=== PATIENT | female | born 1945 | race Caucasian/White ===

== ENCOUNTER 2017-07-12 11:53 | Emergency (ER) | payer MEDICARE, MEDICAID ==
[~2017-07-12] VITALS: Ht 167.6 cm; Wt 62.0 kg
[~2017-07-12 11:53] MED LIST: ALPR.25 PO; AMIT50TA13 PO; AMLO5TAB96 PO; ATEN1TAB73 PO; BACL20TA PO; BUME0.5T PO; BUSP10TA8 PO; ESTR2TAB PO; LEVO100T4 PO; LORT5TAB PO; PRED1 PO
[2017-07-12 11:55] VITALS: BP 169/73; PULSE 74; RESP 16; TEMP 98.9; O2SAT 95
[2017-07-12] MEDS ORDERED: WELLTAB39 PO (12:31)
[2017-07-12] MEDS ORDERED: LEVO100T5 PO (12:31)
[2017-07-12] MEDS ORDERED: MIRA50TA PO (12:31)
[2017-07-12] MEDS ORDERED: OMEP20TA93 PO (12:31)
[2017-07-12] MEDS ORDERED: VITA10002 PO (12:31)
[2017-07-12] MEDS ORDERED: BACL20TA PO (12:31)
[2017-07-12] MEDS ORDERED: CYCL10TA PO (12:31)
[2017-07-12] MEDS ORDERED: CLON0.5T PO (12:31)
[2017-07-12] MEDS ORDERED: ESTR0.5T PO (12:31)
[2017-07-12] MEDS ORDERED: METO50TA PO (12:31)
[2017-07-12] MEDS ORDERED: AMLO2.5T PO (12:31)
[2017-07-12] MEDS ORDERED: MIRT45TA PO (12:31)
[2017-07-12] MEDS ORDERED: BUME0.5T PO (12:31)
[2017-07-12] MEDS ORDERED: LOSA100T PO (12:31)
--- NOTE | 2017-07-12 13:04 | PD ---
HPI Chief Complaint: Laceration/Skin Injury Time Seen by Provider: 12:38 Travel History International Travel<30 days: No Contact w/Intl Traveler<30days: No Traveled to known affect area: No History of Present Illness HPI 72-year-old female here for evaluation of head injury and left lower extremity injury. She reports she attempted to sit on the edge of the bed falling to the left side injuring her head and left leg on a nearby piece of furniture. There was no loss of consciousness. She is not anticoagulated. She has a left-sided generalized headache. No visual changes. No neck pain. No chest pain or shortness of breath. No abdominal pain. No altered sensation or weakness of the lower extremity. She constant aching pain at the site of a laceration to the left lower extremity. Tetanus immunization is up-to-date. PFSH Past Medical History Hx Anticoagulant Therapy: No Autoimmune Disease: Yes (MULTIPLE SCLEROSIS) Anxiety: Yes Depression: Yes Cardiovascular Problems: Yes (HTN, CHOL) High Cholesterol: Yes Congestive Heart Failure: Yes ( PT STATES CHF RESOLVED ) Diabetes: No Diminished Hearing: No Endocrine: Yes (PARATHYROID) GERD: Yes Hypertension: Yes Immunizations Current: Yes Thyroid Disease: Yes (PARATHYROID) Tetanus Vaccination: < 5 Years Influenza Vaccination: Yes ?: Not Ovarian Cysts: Yes Past Surgical History Appendectomy: Yes Section: Yes (X2) Cholecystectomy: Yes Endocrine Surgery: Yes (PARATHYROID-THYROIDECTOMY) Eye Surgery: Yes (CATARACTS) Genitourinary Surgery: Yes (RT NEPHRECTOMY) Hysterectomy: Yes Mastectomy: Yes (BILATERAL - CYSTS) Thoracic Surgery: Yes (R LUNG TUMOR REMOVED) Other Surgery: Yes (BILATERAL MASTECTOMY) Social History Alcohol Use: Yes (RARE) Tobacco Use: No Substance Use: No Allergies-Medications (Allergen,Severity, Reaction): Coded Allergies: ciprofloxacin (Unverified Allergy, Severe, 07/12/17) venlafaxine (Unverified Adverse Reaction, Intermediate, VERY HYPER, 07/12/17 ) Reported Meds & Prescriptions Reported Meds & Active Scripts Active Reported Mirtazapine 45 Mg Tab 45 Mg PO HS Myrbetriq (Mirabegron) 50 Mg Tab 50 Mg PO DAILY Estradiol 0.5 Mg Tab 0.5 Mg PO DAILY Vitamin B-12 (Cyanocobalamin) 1,000 Mcg Tab 1,000 Mcg PO DAILY Omeprazole 20 Mg Tab 20 Mg PO DAILY Flexeril (Cyclobenzaprine HCl) 10 Mg Tab 10 Mg PO TID Wellbutrin Xl 24 HR (Bupropion HCl) 300 Mg Tab 300 Mg PO DAILY Clonazepam 0.5 Mg Tab 0.5 Mg PO TID Baclofen 20 Mg Tab 20 Mg PO TID Losartan (Losartan Potassium) 100 Mg Tab 100 Mg PO DAILY Bumetanide 0.5 Mg Tab 0.5 Mg PO DAILY Metoprolol Tartrate 50 Mg Tab 50 Mg PO DAILY Amlodipine (Amlodipine Besylate) 2.5 Mg Tab 2.5 Mg PO DAILY Levothyroxine (Levothyroxine Sodium) 100 Mcg Tab 100 Mcg PO DAILY Review of Systems Except as stated in HPI: all other systems reviewed are Neg General / Constitutional: No: Fever Eyes: No: Visual changes HENT: No: Headaches Cardiovascular: No: Chest Pain or Discomfort Respiratory: No: Shortness of Breath Gastrointestinal: No: Abdominal Pain Genitourinary: No: Dysuria Physical Exam Narrative GENERAL: Alert and well-appearing 72-year-old female SKIN: Laceration to the left lower extremity HEAD: Normocephalic. Small hematoma to the left forehead with 0.5 cm avulsion skin injury to the left eyebrow. EYES: Pupils equal, round, reactive to light. EOMs intact.. No injection or drainage. NECK: Supple, trachea midline. No cervical midline tenderness. Can freely move the neck. CARDIOVASCULAR: Regular rate and rhythm without murmurs, gallops, or rubs. No chest wall tenderness. RESPIRATORY: Breath sounds equal bilaterally. No accessory muscle use. GASTROINTESTINAL: Abdomen soft, non-tender, nondistended. MUSCULOSKELETAL: No cyanosis, or edema. LLE: 9CM flap laceration/skin tear to the lateral lower extremity. Vascular tendon injury. Full range of motion of the ankle and all toes. Normal sensation. Palpable DP pulse. Brisk cap refill. BACK: Nontender without obvious deformity. No CVA tenderness. Data Data Last Documented VS Vital Signs Date Time Temp Pulse Resp B/P (MAP) Pulse Ox O2 Delivery O2 Flow Rate FiO2 07/12/17 11:55 98.9 74 16 169/73 (105) [address] Brain W/O Iv Contrast(Rout) (07/12/17 ) Acetaminophen (Tylenol) (07/12/17 13:45) MDM Medical Decision Making Medical Screen Exam Complete: Yes Emergency Medical Condition: Yes Differential Diagnosis Left lower extremity laceration, tendon injury, facial laceration, ICH, scalp contusion Narrative Course 72-year-old female with facial contusion and laceration to the left lower extremity. She has a normal neurologic exam. The left lower extremity is neurovascularly intact. Laceration repair performed. CT the brain is negative for hemorrhage. She is stable and ready for discharge Procedures Procedure Narrative LACERATION LOCATION: Left lower extremity LENGTH: 9 cm NUMBER OF STITCHES/PAULETTE: 15 REPAIR: The area of the laceration was prepped with Betadine and sterilely draped. The laceration was infiltrated with 1% lidocaine. The wound was copiously irrigated and explored without evidence of foreign body, tendon injury or neurovascular injury. The wound was closed using 3-0 Ethilon. This was a single layer repair. A sterile dressing was applied. The patient was advised to keep the dressing clean and dry. Patient tolerated the procedure well. Diagnosis Primary Impression: Laceration of lower extremity Qualified Codes: S81.812A - Laceration without foreign body, left lower leg, initial encounter Additional Impression: Head injury Qualified Codes: S09.90XA - Unspecified injury of head, initial encounter Referrals: Primary Care Physician Additional Instructions: Sutures need to be removed in 10 days. Do not submerge the wound in water. Follow-up with your primary doctor for recheck. Return to the ER if he develop new or worsening symptoms as discussed Disposition: 01 DISCHARGE HOME Condition: Stable Codi Chirinos Jul 12, 2017 13:04
[2017-07-12] MEDS ORDERED: ACETAMINOPHEN 500 MG CPLT PO ONE (13:45)
--- NOTE | 2017-07-12 14:03 | RADRPT ---
EXAM DATE: 07/12/2017 1:54 PM EDT AGE/SEX: 72 years / Female INDICATIONS: Fell and hit left side of head. CLINICAL DATA: This is the patient's initial encounter. Patient reports that signs and symptoms have been present for 1 day and indicates a pain score of 4/10. MEDICAL/SURGICAL HISTORY: Hypertension. Hypercholesterolemia. Nephrectomy, right. Thyroidectomy. RADIATION DOSE: 50.78 CTDI (mGy) COMPARISON: No prior [facility] exams available for comparison. TECHNIQUE: CT of the head without contrast. Using automated exposure control and adjustment of the mA and/or kV according to patient size, radiation dose was kept as low as reasonably achievable to ob tain optimal diagnostic quality images. FINDINGS: Cerebrum: The ventricles are normal for age. No evidence of midline shift, mass lesion, hemorrhage or acute infarction. No extraaxial fluid collections are seen. Posterior Fossa: The cerebellum and brainstem are intact. The 4th ventricle is midline. The cerebe llopontine angle is unremarkable. Extracranial: The visualized portion of the orbits is intact. Small area of left frontal soft tissue swelling. Skull: The calvaria is intact. No evidence of skull fracture. CONCLUSION: 1. Small area of soft tissue swelling involving the left frontal region. Otherwise, no acute intr acranial abnormality. Electronically signed by: Cory Brar MD 07/12/2017 2:01 PM EDT
== END 2017-07-12 15:01 | disposition home or self-care (01) ==
LOC: PHEFT 11:53
DX: S81.812A Laceration without foreign body, left lower leg, initial encounter (principal); S09.90XA Unspecified injury of head, initial encounter; W06.XXXA Fall from bed, initial encounter; G35 Multiple sclerosis; F41.9 Anxiety disorder, unspecified; F32.9 Major depressive disorder, single episode, unspecified; E78.00 Pure hypercholesterolemia, unspecified; K21.9 Gastro-esophageal reflux disease without esophagitis; I10 Essential (primary) hypertension
CPT/HCPCS: 12004; 70450